=== PATIENT | male | born 1985 ===

== ENCOUNTER 2018-12-15 03:24 | Emergency (ER) | payer SELFPAY ==
[2018-12-15 03:41] VITALS: RESP 16
[2018-12-15] MEDS ORDERED: Fluorescein 1 mg Ophthalmic Strip OU STA (03:58)
[2018-12-15] MEDS ORDERED: Tetracaine 0.5% Ophth 2 ML BOTTLE OU STA (03:59)
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
[2018-12-15 06:28] VITALS: BP 124/80; PULSE 72; TEMP 98.1; O2SAT 99
== END 2018-12-15 06:05 | disposition home or self-care (01) ==
LOC: H.ER 03:24
DX: H57.89 Other specified disorders of eye and adnexa (principal)

== ENCOUNTER 2019-03-27 15:31 | Emergency (ER) | payer OTHER ==
[2019-03-27 15:43] VITALS: TEMP 98.7
--- NOTE | 2019-03-27 16:42 | ED PDOC ---
HPI: Back Time Seen by Provider: 03/27/19 16:08 Chief Complaint (Nursing): Back Pain Chief Complaint (Provider): Back Pain History Per: Patient History/Exam Limitations: no limitations Onset/Duration Of Symptoms: Days (x3) Current Symptoms Are (Timing): Still Present Additional Complaint(s): Patient is a 34 y/o male with no significant PMHx who presents to the ED for e valuation of constant lower back pain ongoing for the past three days. Pt indicates the pain radiates down to his right thigh. Patient states he woke up with this pain and claims he did some heavy lifting at home the day prior. Patient reports his symptoms are exacerbated on movement and when walking. Patient denies fever, nausea, vomiting, urinary or bowel incontinence, numbness or tingling, weakness, and urinary symptoms. Of note, patient has not taken any medication for relief. PCP: None Past Medical History Reviewed: Historical Data, Nursing Documentation, Vital Signs Vital Signs: Last Vital Signs Temp 98.7 F 03/27/19 15:38 Pulse 71 03/27/19 15:38 Resp 16 03/27/19 15:38 BP 117/65 03/27/19 15:38 Pulse Ox 100 03/27/19 15:38 Primary Care Provider: FAMILY PROVIDER,NO - Medical History PMH: No Chronic Diseases - Surgical History Surgical History: No Surg Hx - Family History Family History: States: Unknown Family Hx - Home Medications Home Medications: Ambulatory Orders Medication Instructions Recorded Cyclobenzaprine [Cyclobenzaprine 10 mg PO TID PRN #12 tab 03/27/19 HCl] Naproxen 500 mg PO BID PRN #20 tab 03/27/19 - Allergies Allergies/Adverse Reactions: Allergies Allergy/AdvReac Type Severity Reaction Status Date / Time No Known Allergies Allergy Verified 03/27/19 15:38 Review of Systems ROS Statement: Except As Marked, All Systems Reviewed And Found Negative Constitutional: Negative for: Fever Gastrointestinal: Negative for: Nausea, Vomiting Genitourinary Male: Negative for: Dysuria, Frequency, Hematuria Musculoskeletal: Positive for: Back Pain (lower), Leg Pain (right thigh) Physical Exam - Reviewed Nursing Documentation Reviewed: Yes Vital Signs Reviewed: Yes - Physical Exam Comments: GENERAL APPEARANCE: Patient is awake, alert, oriented x 3, in no acute distress. SKIN: Warm, dry; (-) cyanosis. EYES: (-) conjunctival pallor. ENMT: Mucous membranes moist. NECK: (-) tenderness, (-) stiffness, (-) lymphadenopathy. CHEST AND RESPIRATORY: (-) rales, (-) rhonchi, (-) wheezes; breath sounds equal bilaterally. HEART AND CARDIOVASCULAR: (-) irregularity; (-) murmur, (-) gallop. ABDOMEN AND GI: Soft; (-) tenderness; (-) palpable mass. BACK: FULL ROM. (+) diffuse tenderness to lumbar muscle, (+) L2-S1 midline tenderness, (+) bilateral lumbar muscle tenderness greater on right than left, (+) mild bilateral CVA tenderness, (-) direct bony tenderness, (-) deformity. (-) straight leg raise bilaterally. EXTREMITIES: (-) deformity. Bilateral upper and lower extremity strength: 5/5. Distal pulses good bilaterally. NEURO AND PSYCH: Mental status as above. Intact sensation bilaterally; normal strength in extension of the knees, plantar and dorsiflexion of the toes. Steady gait. DTRs symmetric. 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 Vertebral bodies exhibit normal stature. Vertebral bodies and facets normally aligned. DISC SPACES: Disc space heights maintained. Tiny marginal anterior osteophyte formation seen at the T11-T12 level. OTHER FINDINGS: None. IMPRESSION: No acute fractures. No significant degenerative spondylosis 17:50 on re eval pt reports improved pain, pending UA UA negative for blood 18:05 pt ambulating well, +FROM, neurologically intact, stable for dc Discussed results, diagnosis, treatment, return precautions and f/u with pt who is understanding, in agreement and stable for dc Scribe Attestation: Documented by Arthur Lopez, acting as a scribe Patrick Fang PA-C. Provider Scribe Attestation: All medical record entries made by the Scribe were at my direction and personally dictated by me. I have reviewed the chart and agree that the record accurately reflects my personal performance of the history, physical exam, medical decision making, and the department course for this patient. I have also personally directed, reviewed, and agree with the discharge instructions and disposition. Disposition - Clinical Impression Clinical Impression: Low back pain, Back strain - Patient ED Disposition Is Patient to be Admitted: No Counseled Patient/Family Regarding: Studies Performed, Diagnosis, Need For Followup, Rx Given - Disposition Referrals: [facility] [Outside] Disposition: Routine/Home Disposition Time: 18:09 Condition: IMPROVED Additional Instructions: Ck por dejarnos cuidar de ti hoy. La atencin mdica de emergencia que recibi hoy se dirigi a kimmy sntomas agudos. Si le recetaron algn medicamento, llnelo y tmelo segn las indicaciones. No conduzca ni jose maria alcohol cuando est tomando flexeril. Descanse, evite levantar objetos pesados ??o realizar actividades extenuantes annia dianna semana. Use almohadillas trmicas y duchas de [place] para calmar los msculos. Los sntomas pueden tardar varios wallace en resolverse. Regrese al Departamento de Emergencias si kimmy sntomas empeoran, no mejoran o si tiene otros problemas. Comunquese con akbar mdico dentro de 2 wallace para dianna nueva evaluacin y fifi un seguimiento o llame a armen de los mdicos / clnicas a los que frias sido referido y que figuran en el formulario de Informacin de visita al paciente que se incluye en akbar paquete de marlene. Lleve todos los documentos que recibi al momento del marlene junto con los medicamentos que est tomando para akbar visita de seguimiento. Nuestro tratamiento no puede reemplazar la atencin mdica continua por parte de un proveedor de atencin primaria (PCP) fuera del departamento de emergencias. Prescriptions: Cyclobenzaprine [Cyclobenzaprine HCl] 10 mg PO TID PRN #12 tab PRN Reason: muscle relaxation Naproxen 500 mg PO BID PRN #20 tab PRN Reason: Pain, Moderate (4-7) Instructions: Muscle Strain, Low Back Pain in Adults, Back Exercises Forms: [facility] (Citizen Of [place]) Print Language: KHMER - POA Present On Arrival: None
--- NOTE | 2019-03-27 17:28 | RAD ---
Date of service: 03/27/2019 PROCEDURE: Radiographs of the Lumbar Spine. HISTORY: Back pain. COMPARISON: No prior. TECHNIQUE: 5 views obtained. FINDINGS: BONES: No acute compression fractures nor retropulsed fragments. Vertebral bodies exhibit normal stature. Vertebral bodies and facets normally aligned. DISC SPACES: Disc space heights maintained. Tiny marginal anterior osteophyte formation seen at the T11-T12 level. OTHER FINDINGS: None. IMPRESSION: No acute fractures. No significant degenerative spondylosis
[2019-03-27 17:31] LABS: SQUAMOUS EPITHIAL < 1 /hpf (0-5); URINE BILIRUBIN NEGATIVE (NEGATIVE); URINE BLOOD NEGATIVE (NEGATIVE); URINE CLARITY SLIGHTY-CLOUDY (Clear); URINE COLOR YELLOW (YELLOW); URINE GLUCOSE (UA) NEG (NEGATIVE); URINE HYALINE CAST 0-2 /hpf (0-2); URINE LEUKOCYTE ESTERASE NEG Leu/uL (Negative); URINE PROTEIN 30 mg/dL (NEGATIVE); URINE UROBILINOGEN 0.2-1.0 mg/dL (0.2-1.0)
[2019-03-27 18:44] VITALS: BP 121/71; PULSE 69; RESP 17
[2019-03-28 12:14] VITALS: O2SAT 100
== END 2019-03-27 18:29 | disposition home or self-care (01) ==
LOC: H.ER 15:31
DX: S39.012A Strain of muscle, fascia and tendon of lower back, initial encounter (principal); X58.XXXA Exposure to other specified factors, initial encounter; Y92.89 Other specified places as the place of occurrence of the external cause
CPT/HCPCS: 72100; 81003; 96372; 99283; J1885